=== PATIENT | male | born 1955 | race Caucasian/White ===

== ENCOUNTER → 2016-07-31 | Outpatient (CLI) | payer BC | LOC: CIMAGING 07:34 | PROVIDERS: ATTEND Internal Medicine | DX: R74.0 Nonspecific elevation of levels of transaminase and lactic acid dehydrogenase [LDH] (principal); R93.8 Abnormal findings on diagnostic imaging of other specified body structures | CPT/HCPCS: 76705-PO ==

== ENCOUNTER → 2016-12-10 | Outpatient (CLI) | payer BC ==
[~2016-12-10] MED LIST: IOPAMIDOL (ISOVUE-300) 100 ML BTL ONE
== END ==
LOC: FIMAGING 10:13
PROVIDERS: ATTEND Internal Medicine
DX: D18.03 Hemangioma of intra-abdominal structures (principal); B18.2 Chronic viral hepatitis C
CPT/HCPCS: Q9967

== ENCOUNTER → 2017-05-26 | Outpatient (CLI) | payer BC | LOC: BRMIMAGING 08:43 | PROVIDERS: ATTEND Internal Medicine | DX: K80.20 Calculus of gallbladder without cholecystitis without obstruction (principal); K74.0 Hepatic fibrosis | CPT/HCPCS: 76705-PO ==

== ENCOUNTER → 2017-11-09 | Outpatient (CLI) | payer BC | LOC: CIMAGING 10:14 | PROVIDERS: ATTEND Internal Medicine | DX: K74.0 Hepatic fibrosis (principal); B18.2 Chronic viral hepatitis C; D18.03 Hemangioma of intra-abdominal structures | CPT/HCPCS: 76700-PO ==